=== PATIENT | female | born 1975 | race Native Hawaiian/Other Pacific Islander ===

== ENCOUNTER 2023-02-06 14:19 | Day surgery (SDC) | payer OTHER, SELFPAY ==
[2023-01-15 09:43] VITALS: BMI 33.6
[2023-02-06 15:05] VITALS: BP 130/73; PULSE 70; RESP 16; TEMP 36.2; O2SAT 98; BMI 33.6
[2023-02-06] MEDS: LACTATED RINGERS 1,000 ML 42 ML IV (15:09)
--- NOTE | 2023-02-06 15:19 | PM.HP.1 ---
History of Present Illness History of Present Illness Date Patient Seen: 02/06/23 Time Patient Seen: 15:19 Chief complaint: Left foot numbness Narrative: Patient is a 47-year-old female with left foot numbness resistant to conservative treatment. She is been trialed on nerve medication continues to have numbness over the dorsum of the foot into the 1st webspace. She has had increasing doses of gabapentin without relief. She has a normal MRI. She has a Tinel's at the deep peroneal nerve. She is been indicated for decompression deep purulence nail nerve at the foot. [facility] Medical History Cancer Depression Fibromyalgia Headache HLD (hyperlipidemia) HTN (hypertension) Pre-diabetes RLS (restless legs syndrome) Sleep apnea Surgical History History of hysterectomy Hx of cholecystectomy Social History household members: spouse Smoking Status: Never smoker Meds Home Medications and Allergies Home Medications Medication Instructions Recorded Confirmed Type atorvastatin 20 mg PO DAILY 01/15/23 02/06/23 History cyclobenzaprine 10 mg PO PRN PRN Back Pain 01/15/23 02/06/23 History escitalopram oxalate 10 mg PO TID 01/15/23 02/06/23 History lamotrigine 100 mg PO DAILY 01/15/23 02/06/23 History metformin 500 mg PO DAILY 01/15/23 02/06/23 History amlodipine 2.5 mg tablet 2.5 mg PO DAILY 02/06/23 02/06/23 History omeprazole 20 mg capsule,delayed 20 mg PO DAILY 02/06/23 02/06/23 History release Allergies Allergy/AdvReac Type Severity Reaction Status Date / Time latex Allergy Verified 02/06/23 14:59 Review of Systems Review of Systems Narrative: Medical history is remarkable for fibromyalgia ROS: Yes All systems reviewed with the patient and are negative except as otherwise documented Exam Vital Signs (past 8 hours): - 02/06/23 15:05 Temperature 97.1 F L Pulse Rate 70 Respiratory Rate 16 Blood Pressure 130/73 Pulse Oximetry 98 Oxygen Delivery Method Room Air Oxygen Delivery Method Room Air Narrative Exam Narrative: General exam alert oriented female in no acute distress. Vital signs stable. Cardiovascular exam regular rate and rhythm. Lungs are clear to auscultation bilaterally. Full weight-bearing no assistive devices. Left lower extremity grossly normal alignment range of motion strength and stability without swelling or effusion. Normal alignment. There is a positive Tinel's at the deep peroneal nerve at the midfoot. No Tinel's at the superficial peroneal nerve. No Tinel's at the fibular neck. There is numbness in the 1st webspace. 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 She has a walking boot or postop shoe at home that she will wear after surgery. Discussed use the boot or shoe for weight-bearing until the incision is healed about 2 weeks postop. She has findings consistent with compressive neuropathy. She is been placed on gabapentin by her primary care doctor but has not improved her symptoms even with escalating doses. She is also failed physical therapy. She is indicated for decompression deep peroneal nerve at the level of the foot. Discussed that decompression surgery has variable results she may not get complete relief of the pain and there is also a chance of persistent pain or worsening. She understands and agrees with the plan. She elects to proceed. The risks and benefits of the procedure have been discussed with the patient and given the opportunity to ask questions. The risks of surgery include but are not limited to infection, malunion, nonunion, persistence of pain, damage to nerves and blood vessels, posttraumatic arthritis, DVT, PE, cardiopulmonary complications and . The patient expressed a thorough understanding of the risks and benefits of surgery and has elected to proceed. Consent was signed. Postoperative plan will be weight-bearing as tolerated in the boot or shoe for 2 weeks. May take months for complete nerve improvement. Discussed risk for painful scar or persistent symptoms. Time Spent With Patient Time with patient: less than 30 minutes Quality VTE Deep Vein Thrombosis/Pulmonary Embolism Present on Admission: No
[2023-02-06] MEDS: CEFAZOLIN 2 GM/100 ML PREMIX 100 ML IV (15:35)
--- NOTE | 2023-02-06 15:50 | SUR.OPER ---
Supine on padded OR bed, head on pillow, arms secured on padded arm boards at <90 degrees abduction, legs uncrossed, safety belt at thigh, tape over blanket over lower legs.
[2023-02-06] MEDS: BUPIVACAINE 0.25% (PF) 30 ML, EPINEPHrine 0.15 MG INJ (15:57)
[2023-02-06 16:34] VITALS: BP 114/55; PULSE 94; RESP 16; TEMP 36.2; O2SAT 95
--- NOTE | 2023-02-06 16:38 | PM.OP.1 ---
Operative Date/Time/Diagnoses Date of procedure: 02/06/23 Time of procedure: 16:00 Pre-op diagnosis: Injury left deep peroneal nerve foot level Nerve compression foot Post-op diagnosis: same Procedure & Clinicians Procedure: Decompression nerve left foot CPT code 44640 Same procedure as scheduled: Yes Indications: Patient is a 47-year-old female that presents with left foot numbness and tingling. 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 She is failed conservative treatment with shoe modifications anti-inflammatories physical therapy and gabapentin. She is a Tinel's over the midfoot neurovascular bundle. She wishes to proceed with decompression. She understands that this may not completely relieve her pain or she may have persistent ongoing symptoms. The risks and benefits of the procedure have been discussed with the patient and given the opportunity to ask questions. The risks of surgery include but are not limited to infection, malunion, nonunion, persistence of pain, damage to nerves and blood vessels, cardiopulmonary complications and . The patient expressed a thorough understanding of the risks and benefits of surgery and has elected to proceed. Consent was signed. Surgeon: Meme Araya Click Yes if Unassisted: Yes Anesthesia Type: General and Local Operative Notes Findings: Tight extensor hallucis brevis directly over the neurovascular bundle. This was released decompressing the neurovascular bundle. There were no other focal lesions cysts or pathology noted. Neurovascular bundle was noted to be intact there was some compression along the deep peroneal nerve noted. Closure Type: primary Specimen(s): none sent Estimated Blood Loss (mL): 5 Blood products transfused: none Tourniquet time (min): 12 Procedure in detail: Patient is seen in the preoperative area the site of surgery marked informed consent confirmed. The patient was brought back to the operating room by the anesthesia team positioned supine position on the operative table. General anesthetic was administered. The left lower extremity prepped and draped in standard sterile fashion. Formal time-out procedure was completed confirming the patient's side and site of surgery administration of appropriate preoperative antibiotic. All were in agreement. Attention was turned to the left foot the Esmarch was used for exsanguination tourniquet raised to 250 mmHg. Attention was turned to the dorsum of the foot. Interval between the medial and middle cuneiform the area of the Tinel's was isolated. 2-3 cm incision was made this was taken carefully down through the subcutaneous tissue with blunt dissection through the subcutaneous tissue protecting branches of the superficial peroneal nerve. The extensor hallucis longus was medial. The extensor hallucis brevis was isolated and carefully exposed. This was transected freeing the neurovascular bundle below it. The neurovascular bundle was carefully examined and decompressed using the tenotomy scissors making sure there were no tight areas of adhesions remaining. some compression along the deep peroneal nerve from the extensor hallucis brevis was noted, this was otherwise intact there were no masses or other associated lesions. At this point the tourniquet was released. Bipolar cautery was used for hemostasis the wound was irrigated then closed with 4-0 Monocryl and 4-0 nylon suture. Additional skin glue was placed. A dressing was placed with gauze and Tegaderm. The patient was woken from anesthesia taken to recovery room in good condition there no immediate complications from this procedure. Post-operative Condition: stable Disposition: PACU Plan for aftercare: Weightbear as tolerated in postoperative shoe. Keep incision covered. May shower if changes dressing to a dry Band-Aid. No submerging the incision. Follow-up in 2 weeks.
[2023-02-06 16:39] VITALS: BP 121/79; PULSE 90; RESP 16; O2SAT 97
[2023-02-06 16:44] VITALS: BP 136/84; PULSE 88; RESP 16; O2SAT 98
[2023-02-06 16:49] VITALS: BP 118/50; PULSE 83; RESP 14; O2SAT 98
[2023-02-06] MEDS: OXYCODONE/ACETAMINOPHEN 5/325 TABLET 1 TAB PO (16:52)
== END 2023-02-06 17:06 | disposition home or self-care (01) ==
PROVIDERS: PCP Internal Medicine; Referring Provider Orthopaedic Surgery Foot and Ankle Surgery; Visit Provider Orthopaedic Surgery Foot and Ankle Surgery
PROC: (CPT 64704; principal; 2023-02-06 15:45)
DX: S94.22XA Injury of deep peroneal nerve at ankle and foot level, left leg, initial encounter (principal); M84.30XA Stress fracture, unspecified site, initial encounter for fracture; M77.42 Metatarsalgia, left foot
CPT/HCPCS: 64704; J0171; J0690; J1100; J2405; J2704; J3010